=== PATIENT | female | born 1970 | race Caucasian/White ===

== ENCOUNTER → 2016-09-23 | Outpatient (CLI) | payer BC ==
--- NOTE | 2016-09-24 07:57 | XR ---
EXAMINATION TYPE: XR KUB DATE OF EXAM ORDERED: 09/23/2016 4:34 PM HISTORY: Right-sided kidney stone and flank pain. COMPARISON: None. FINDINGS: There are phleboliths within the pelvis. No definite renal calculi are seen. The abdominal gas pattern is normal. IMPRESSION: I DO NOT SEE EVIDENCE OF NEPHROLITHIASIS AT THIS TIME.
== END | disposition home or self-care (01) ==
LOC: RADXRMAIN 16:03
PROVIDERS: ATTEND Physician Assistant
DX: N20.0 Calculus of kidney (principal)
CPT/HCPCS: 74000

== ENCOUNTER → 2016-10-31 | Outpatient (CLI) | payer BC ==
[2016-10-31 19:03] LABS: Calcium 8.4 mg/dL (8.4-10.2); Potassium 4.1 mmol/L (3.5-5.1); Total Bilirubin 0.5 mg/dL (0.2-1.3); Total Protein 6.8 g/dL (6.3-8.2)
[2016-10-31 19:11] LABS: Basophils % (A) 0 %; Eosinophils # (A) 0.2 k/uL (0-0.7); Eosinophils % (A) 3 %; HCT 38.9 % (34.0-46.0); HDW 2.45; Hypochromasia Slight; Luc % (Auto) 3; Lymphocytes # (A) 1.3 k/uL (1.0-4.8); Lymphocytes % (A) 19 %; MCH 29.8 pg (25.0-35.0); MCHC 30.8 g/dL (31.0-37.0); MCV 96.8 fL (80.0-100.0); Mean Platelet Volume 7.6; Monocytes # (A) 0.4 k/uL (0-1.0); Monocytes % (A) 6 %; Neutrophils # (A) 4.7 k/uL (1.3-7.7); Neutrophils % (A) 69 %; RBC 4.02 m/uL (3.80-5.40); RDW 11.9 % (11.5-15.5); WBC 6.8 k/uL (3.8-10.6); WBC (Perox) 6.82
== END | disposition home or self-care (01) ==
LOC: MMGSC 14:41
PROVIDERS: ATTEND Family Medicine
DX: E11.9 Type 2 diabetes mellitus without complications (principal)
CPT/HCPCS: 36415; 80053; 83036; 85025

== ENCOUNTER → 2016-11-05 | Outpatient (CLI) | payer BC ==
--- NOTE | 2016-11-05 19:35 | CT ---
EXAMINATION TYPE: CT abdomen pelvis wo con DATE OF EXAM: 11/05/2016 7:17 PM COMPARISON: NONE HISTORY: Right flank pain, history of stones with lithotripsy. CT DLP: 2702.70 mGycm Automated exposure control for dose reduction was used. TECHNIQUE: Helical acquisition of images was performed from the lung bases through the pelvis. FINDINGS: The lung bases are clear of consolidation. There is no pleural effusion. Heart size is normal. Liver spleen pancreas gallbladder appear normal. Bile ducts are not dilated. There is no adrenal mass . The right kidney shows hydronephrosis and perinephric edema. There is a 5 mm calculus at the right ureteropelvic junction. The left kidney has normal size and contour with no hydronephrosis. There is no retroperitoneal adenopathy. There is an umbilical hernia that contains omental fat. Bladder distends smoothly. There is no evidence of a pelvic mass. There are multiple small right magnus l calculi. The appendix appears normal. I see no bony destructive process. IMPRESSION: RIGHT-SIDED HYDRONEPHROSIS WITH AN OBSTRUCTING SMALL CALCULUS AT THE URETEROPELVIC JUNCTION. PERINEPH KODY EDEMA. MULTIPLE RIGHT RENAL CALCULI.
== END | disposition home or self-care (01) ==
LOC: RADCTMAIN 18:54
PROVIDERS: ATTEND Urology
DX: N13.2 Hydronephrosis with renal and ureteral calculous obstruction (principal); N04.9 Nephrotic syndrome with unspecified morphologic changes
CPT/HCPCS: 74176

== ENCOUNTER 2016-12-24 13:59 | Day surgery (SDC) | payer BC ==
[2016-12-24] MEDS ORDERED: LIDOCAINE 1% 20 ML VIAL (10MG/ML) FOR IV START INTRADERMA ONE (14:32)
[2016-12-24] MEDS ORDERED: LACTATED RINGERS 1,000 ML IV ONE ×2 (14:34→16:34)
[2016-12-24] MEDS ORDERED: DEXAMETHASONE SOD PHOSPHATE 10 MG/ML 1 ML VIAL IV ONE (14:35)
[2016-12-24] MEDS ORDERED: ONDANSETRON 4 MG/2 ML VIAL IVP ONE (14:35)
[2016-12-24 14:42] LABS: Glucose,Whole Blood 162 mg/dL (75-99)
[2016-12-24] MEDS ORDERED: fentaNYL (PF) 50 MCG/ML 2 ML AMP ONE (15:09)
[2016-12-24] MEDS ORDERED: PROPOFOL 10 MG/ML 20 ML VIAL IV ONE (15:09)
[2016-12-24] MEDS ORDERED: LIDOCAINE 1% INJ 10MG/ML (20 ML MDV) ONE (15:09)
[2016-12-24] MEDS ORDERED: MIDAZOLAM 2 MG/2 ML VIAL ONE (15:09)
[2016-12-24] MEDS ORDERED: ceFAZolin 3 GM in SODIUM CHLORIDE 0.9% 100 ML IVPB ONE (15:30)
[2016-12-24] MEDS ORDERED: IOHEXOL 350 MG/ML 50ML BOTTLE INTRATHECA ONE (15:49)
--- NOTE | 2016-12-24 16:01 | P.OP ---
Date of Procedure: 12/24/16 Preoperative Diagnosis: Right ureteral obstruction, right ureteral calculus, hydronephrosis, perinephric fluid Postoperative Diagnosis: Same Procedure(s) Performed: Cystoscopy, right retrograde pyelogram, placement of right ureteral catheter with collection of urine for infection, placement of 7 x 28 double-J catheter Anesthesia: MAC Surgeon: Omar Rodriguez Estimated Blood Loss (ml): 0 Pathology: none sent Condition: stable Disposition: PACU Indications for Procedure: The patient is a 46-year-old female with a prolonged complicated kidney stone history. The patient began with the problems couple months ago with a striking right UPJ stone. The original CAT scan showed it to be 12 mm. Her size at 330 pounds prevented her of having shockwave lithotripsy. Her size also is probably going to prevent a percutaneous procedure. I ended up doing her for ureteroscopy and the stone was about 20 mm. I did ureteroscopy and laser lithotripsy with a stent placement. When the stent was removed she obstructed fragments in the proximal ureter. I thus repeated ureteroscopy and laser lithotripsy and placed a stent. The stent was removed last Thursday and by Thursday issues with abdominal pain nausea and vomiting. She was treated by her primary doctor with antibiotics however he presented to the office today with severe abdominal pain. I reviewed the computed tomography scan and identified a 3 mm stone at the UPJ 3 mm stone in the right lower pole calyx perinephric fluid and hydronephrosis. Given the whole scenario my plan is to replace the double-J catheter check for infected urine. Description of Procedure: The patient brought to the operating suite and given a successful general endotracheal anesthesia. She was given a sterile prep and drape after being placed lithotomy position. 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 The bladder is irrigated thoroughly. With an 8 cone-tip catheter a retrograde pyelogram performed and the dye will not go into the UPJ. 25 wire however is able to manipulate by the probable edema from the stone into the renal pelvis. Over the wires and passed a 6-Salvadorean open- ended catheter removed the wire and collect a purulent hydronephrotic drip. I replaced the wire and then over the wires passed a 7 x 28 double-J catheter that coils in the renal pelvis and in the bladder. The patient awake and returned recovery room good condition. The urine is sent for culture. SHe'll be observed in the hospital overnight. The issues to be addressed are the UPJ as well as a perinephric fluid. This will be discussed on a plan of action will be made with the patient.
--- NOTE | 2016-12-24 16:06 | FL ---
EXAMINATION TYPE: FL urography retrograde DATE OF EXAM: 12/24/2016 3:59 PM COMPARISON: NONE HISTORY: 46-year-old female stent placement in right ureter TECHNIQUE: Fluoroscopy. FINDINGS: Fluoroscopic guidance was provided during procedure performed by Dr. Rodriguez. A total of 1 minute 13 seconds of fluoroscopic time was utilized during the procedure and 2 spot images was acquir ed. IMPRESSION: As Above.
[2016-12-24 16:08] LABS: Glucose,Whole Blood 145 mg/dL (75-99)
[2016-12-24] MEDS ORDERED: MORPHINE SULFATE 2 MG/ML SYRINGE IV PRN (16:24)
[2016-12-24] MEDS ORDERED: ACETAMINOPHEN TAB 325 MG TAB PO PRN (16:24)
[2016-12-24] MEDS ORDERED: LEVOFLOXACIN 500 MG TAB PO SCH (16:24)
[2016-12-24] MEDS ORDERED: HYDROcodone/APAP 5-325MG 1 EACH TAB PO PRN (16:24)
[2016-12-24 17:29] LABS: Glucose,Whole Blood 166 mg/dL (75-99)
[2016-12-24] MEDS ORDERED: INSULIN LISPRO (humaLOG) 300 UNIT/3 ML VIAL SQ SCH (17:30)
[2016-12-24] MEDS: SODIUM CHLORIDE 0.45% 1,000 ML IV SCH (17:42)
[2016-12-24] MEDS: glipiZIDE 10 MG TAB PO SCH (21:04)
[2016-12-24] MEDS: metFORMIN 500 MG TAB PO SCH (21:04)
[2016-12-24 23:02] LABS: Glucose,Whole Blood 394 mg/dL (75-99)
[2016-12-24] MEDS: INSULIN LISPRO (humaLOG) 300 UNIT/3 ML VIAL SQ SCH (23:10)
[2016-12-24] MEDS: ceFAZolin 1,000 MG in DEXTROSE/WATER 1 50ML.BAG IVPB SCH (23:10)
[2016-12-25] MEDS ORDERED: ceFAZolin 1 GM in DEXTROSE 5% IN WATER 50 ML IVPB SCH ×2
[2016-12-25] MEDS ORDERED: ceFAZolin 1 GM in SODIUM CHLORIDE 0.9% 100 ML IVPB SCH ×2
[2016-12-25 01:23] VITALS: RESP 16
[2016-12-25 05:05] LABS: Glucose,Whole Blood 323 mg/dL (75-99)
[2016-12-25] MEDS: INSULIN LISPRO (humaLOG) 300 UNIT/3 ML VIAL SQ SCH (05:05)
[2016-12-25] MEDS: SODIUM CHLORIDE 0.45% 1,000 ML IV SCH (05:05)
--- NOTE | 2016-12-25 06:37 | P.DS ---
Providers Attending physician: Omar Rodriguez Primary care physician: [facility] Course: The patient came to the office yesterday with severe right flank pain and nausea. She had a CAT scan couple days prior identified a 3 mm UPJ stone with hydronephrosis and perinephric fluid. Because of the pain and the difficult don 't treatment that she has been undergoing I recommended that she come to the hospital for emergent placement of stent. She underwent cystoscopy retrograde pyelogram which showed an obstructed ureter. Is able to get a wire into the kidney and drain the kidney. The urine was purulent. A double-J catheter was placed and she feels much better this morning. She did not get febrile overnight. She feels much better this morning. I will discharge her home on her home medications plus Keflex. She will follow in the office in one week. My plan is to leave the stent approximately 1 month and then do a cystoscopy ureteroscopy and remove the 3 mm fragment in the UPJ as well as one in the kidney. We'll observe the perinephric fluid and as long as it doesn't get infected nothing further need to be done and will be reabsorbed stone. This is been discussed with the patient. She'll resume her home medications and activity. Patient Condition at Discharge: Good Plan - Discharge Summary New Discharge Prescriptions: Cephalexin [Keflex] 500 mg PO Q8HR #30 cap Discharge Medication List HYDROcodone/APAP 5-325MG [Velpen 5-325] 1 tab PO Q4-6H PRN 12/24/16 [History] amLODIPine BESYLATE/BENAZEPRIL [Lotrel 10-20 mg Capsule] 1 cap PO DAILY [History] glyBURIDE/METFORMIN HCL [Glucovance 5-500 mg Tablet] 2 tab PO BID 12/24/16 [ History] Cephalexin [Keflex] 500 mg PO Q8HR #30 cap 12/25/16 [Rx] Follow up Appointment(s)/Referral(s): Omar Rodriguez MD [STAFF PHYSICIAN] - 1 Week Discharge Disposition: HOME SELF-CARE
[2016-12-25] MEDS: glipiZIDE 10 MG TAB PO SCH (08:37)
[2016-12-25] MEDS: ceFAZolin 1,000 MG in DEXTROSE/WATER 1 50ML.BAG IVPB SCH (08:39)
[2016-12-25] MEDS: metFORMIN 500 MG TAB PO SCH (08:40)
[2016-12-25 08:42] VITALS: BP 118/72; PULSE 99; TEMP 98
[2016-12-25] MEDS ORDERED: amLODIPine 10 MG TAB PO SCH (09:00)
[2016-12-25] MEDS ORDERED: LISINOPRIL 5 MG TAB PO SCH (09:00)
[2016-12-25] MEDS ORDERED: LISINOPRIL 20 MG TAB PO SCH (09:00)
[2016-12-25 12:26] LABS: Hemoglobin A1C 10.1 % (4.2-6.1)
== END 2016-12-25 11:17 | disposition home or self-care (01) ==
LOC: OR 13:59 → 3SUR 16:09 → OR 12-25 11:17
PROVIDERS: ATTEND Urology
DX: N13.2 Hydronephrosis with renal and ureteral calculous obstruction (principal); I10 Essential (primary) hypertension; J45.909 Unspecified asthma, uncomplicated; E11.9 Type 2 diabetes mellitus without complications; Z79.84 Long term (current) use of oral hypoglycemic drugs; Z79.899 Other long term (current) drug therapy; Z88.1 Allergy status to other antibiotic agents; Z88.3 Allergy status to other anti-infective agents; Z88.0 Allergy status to penicillin; Z88.6 Allergy status to analgesic agent
CPT/HCPCS: 83036; 87086; 74420; 52005; C2625; C1758; C1769; J2250; J1100; J0690 ×3; J2405; J2001; J3010; J2704; Q9967; 87075

== ENCOUNTER 2016-12-31 06:13 | Emergency (ER) | payer BC ==
[2016-12-31] MEDS ORDERED: ONDANSETRON 4 MG/2 ML VIAL IVP STA (07:36)
[2016-12-31] MEDS ORDERED: SODIUM CHLORIDE 0.9% 500 ML IV STA (07:36)
[2016-12-31] MEDS ORDERED: HYDROmorphone 1 MG/ML 1 ML SYRINGE IVP STA (07:36)
--- NOTE | 2016-12-31 07:42 | ED ---
General Adult HPI - General Chief complaint: Abdominal Pain Stated complaint: abd pain, shallow breathing Time Seen by Provider: 12/31/16 07:00 Source: patient, RN notes reviewed Mode of arrival: ambulatory Limitations: no limitations - History of Present Illness Initial comments: This is a 46-year-old female who presents emergency Department complaining of right quadrant abdominal pain that radiates to the flank. Patient states she's had multiple kidney procedure should she had a stent placed last Thursday. Patient states this pain started yesterday evening and has persisted all night. Patient states she is nauseous. Patient denies any vomiting. Patient denies any diarrhea. Patient states she still has her gallbladder. Patient states she was told that she had an infected kidney when he put the stent in. Patient states she also was told that there was fluid around the kidney as well. Patient denies any chest pain palpitations. Patient does states she's been coughing more and feels slightly short of breath. Patient denies any recent fever or chills. - Related Data Home Medications Medication Instructions Recorded Confirmed HYDROcodone/APAP 5-325MG [[place] 1 tab PO Q4-6H PRN 12/24/16 12/31/16 5-325] amLODIPine BESYLATE/BENAZEPRIL 1 cap PO DAILY 12/24/16 12/31/16 [Lotrel 10-20 mg Capsule] glyBURIDE/METFORMIN HCL 2 tab PO BID 12/24/16 12/31/16 [Glucovance 5-500 mg Tablet] Cetirizine HCl [Zyrtec] 10 mg PO DAILY 12/31/16 12/31/16 Cyclobenzaprine [Flexeril] 10 mg PO DAILY PRN 12/31/16 12/31/16 Fluconazole [Diflucan] 200 mg PO DAILY 12/31/16 12/31/16 Previous Rx's Medication Instructions Recorded Cephalexin [Keflex] 500 mg PO Q8HR #30 cap 12/25/16 Ketorolac [Toradol] 10 mg PO Q6HR #15 tab 12/31/16 Allergies Allergy/AdvReac Type Severity Reaction Status Date / Time amoxicillin Allergy Severe Itching Verified 12/31/16 08:03 cephalexin [From Keflex] Allergy Severe Itching Verified 12/31/16 08:03 ciprofloxacin [From Cipro] Allergy Severe Itching Verified 12/31/16 08:03 clindamycin Allergy Severe Rash/Hives Verified 12/31/16 08:03 dichloralphenazone Allergy Severe Anaphylaxis Verified 12/31/16 08:03 [From Midrin] doxycycline Allergy Severe Itching Verified 12/31/16 08:03 isometheptene [From Midrin] Allergy Severe Anaphylaxis Verified 12/31/16 08:03 azithromycin Allergy Itching Verified 12/31/16 08:03 sulfamethoxazole Allergy Rash/Hives Verified 12/31/16 08:03 [From Bactrim] trimethoprim [From Bactrim] Allergy Rash/Hives Verified 12/31/16 08:03 antibiotics Allergy Intermediate Rash/Hives Uncoded 12/31/16 06:20 Review of Systems ROS Statement: Those systems with pertinent positive or pertinent negative responses have been documented in the HPI. ROS Other: All systems not noted in ROS Statement are negative. Past Medical History Past Medical History: Asthma, Diabetes Mellitus, GERD/Reflux, Hypertension, Pneumonia Additional Past Medical History / Comment(s): kidney stones , fatty liver, spinal stenosis, "dry skin" "has a spot on lt eye that dr is watching", uti History of Any Multi-Drug Resistant Organisms: MRSA Date of last positivie culture/infection: 06/15/15/02-05-16 MDRO Source:: groin/nose Additional Past Surgical History / Comment(s): 12-24-16 double j cath placed, lithothripy x2, colonoscopy Past Anesthesia/Blood Transfusion Reactions: No Reported Reaction Past Psychological History: No Psychological Hx Reported Additional Psychological History / Comment(s): pt lives with boyfriend in a single story home that has 2 steps t go up. pt is independant. workss for [employer] service. has a nebulizer at home/ Smoking Status: Never smoker Past Alcohol Use History: None Reported Past Drug Use History: None Reported - Past Family History Father Family Medical History: CVA/TIA, Diabetes Mellitus, Myocardial Infarction (MS) Mother Family Medical History: Cancer, Diabetes Mellitus Additional Family Medical History / Comment(s): small cell lung cancer General Exam - General Exam Comments Initial Comments: GENERAL: Patient is well-developed and well-nourished. Patient is nontoxic and well- hydrated and is in mild distress. ENT: Neck is soft and supple. No significant lymphadenopathy is noted. Oropharynx is clear. Moist mucous membranes. Neck has full range of motion without eliciting any pain. EYES: The sclera were anicteric and conjunctiva were pink and moist. Extraocular movements were intact and pupils were equal round and reactive to light. Eyelids were unremarkable. PULMONARY: Unlabored respirations. Good breath sounds bilaterally. No audible rales rhonchi or wheezing was noted. CARDIOVASCULAR: There is a regular rate and rhythm without any murmurs gallops or rubs. ABDOMEN: Patient has right upper quadrant tenderness no rebound or guarding. SKIN: Skin is clear with no lesions or rashes and otherwise unremarkable. NEUROLOGIC: Patient is alert and oriented x3. Cranial nerves II through XII are grossly intact. Motor and sensory are also intact. Normal speech, volume and content. Symmetrical smile. MUSCULOSKELETAL: Normal extremities with adequate strength and full range of motion. No lower extremity swelling or edema. No calf tenderness. LYMPHATICS: No significant lymphadenopathy is noted PSYCHIATRIC: Normal psychiatric evaluation. Normal interpersonal interactions appears functionally intact in deals appropriately with others. No signs of depression. No signs of anxiety. Limitations: no limitations Course Vital Signs 12/31/16 12/31/16 06:18 08:46 Temperature 98.3 F 98.6 F Pulse Rate 116 H 84 Respiratory 20 22 Rate Blood Pressure 142/79 133/70 O2 Sat by Pulse 98 Oximetry Medical Decision Making - Medical Decision Making Patient stated she was recently on Keflex and she did with Benadryl and she was fine taking at home. Ultrasound showed some fluid around the right kidney. I spoke with Dr. Bullard about the results he did not believe the patient needed antibiotics at this point and that the patient could follow-up with their office. Patient was feeling considerably better she only complaint is 2 out of 10 pain. - Lab Data Result diagrams: 12/31/16 06:33 12/31/16 06:33 Lab Results 12/31/16 12/31/16 12/31/16 Range/Units 06:23 06:33 06:33 WBC 10.6 (3.8-10.6) k/uL RBC 3.79 L (3.80-5.40) m/uL Hgb 10.9 L (11.4-16.0) gm/dL Hct 35.2 (34.0-46.0) % MCV 92.6 (80.0-100.0) fL MCH 28.6 (25.0-35.0) pg MCHC 30.9 L (31.0-37.0) g/dL RDW 13.7 (11.5-15.5) % Plt Count 448 (150-450) k/uL Neutrophils % 76 % Lymphocytes % 15 % Monocytes % 4 % Eosinophils % 3 % Basophils % 1 % Neutrophils # 8.1 H (1.3-7.7) k/uL Lymphocytes # 1.6 (1.0-4.8) k/uL Monocytes # 0.4 (0-1.0) k/uL Eosinophils # 0.3 (0-0.7) k/uL Basophils # 0.1 (0-0.2) k/uL Hypochromasia Moderate Sodium 138 (137-145) mmol/L Potassium 4.9 (3.5-5.1) mmol/L Chloride 98 (98-107) mmol/L Carbon Dioxide 30 (22-30) mmol/L Anion Gap 10 mmol/L BUN 16 (7-17) mg/dL Creatinine 1.02 (0.52-1.04) mg/dL Est GFR (MDRD) Af Amer >60 (>60 ml/min/1.73 sqM) Est GFR (MDRD) Non-Af 59 (>60 ml/min/1.73 sqM) Glucose 213 H (74-99) mg/dL Calcium 8.1 L (8.4-10.2) mg/dL Total Bilirubin 0.7 (0.2-1.3) mg/dL AST 16 (14-36) U/L ALT 21 (9-52) U/L Alkaline Phosphatase 67 (38-126) U/L Total Protein 7.0 (6.3-8.2) g/dL Albumin 3.3 L (3.5-5.0) g/dL Amylase 39 (30-110) U/L Lipase 274 (23-300) U/L Urine Color Yellow Urine Appearance Cloudy H (Clear) Urine pH 6.0 (5.0-8.0) Ur Specific [place] 1.013 (1.001-1.035) Urine Protein 1+ H (Negative) Urine Glucose (UA) Negative (Negative) Urine Ketones Negative (Negative) Urine Blood Trace H (Negative) Urine Nitrite Negative (Negative) Urine Bilirubin Negative (Negative) Urine Urobilinogen <2.0 (<2.0) mg/dL Ur Leukocyte Esterase Large H (Negative) Urine RBC 8 H (0-5) /hpf Urine WBC >182 H (0-5) /hpf Ur Squamous Epith Cells 5 H (0-4) /hpf Urine Mucus Rare H (None) /hpf Urine Yeast (Budding) Rare H (None) /hpf Disposition Clinical Impression: Right flank pain Disposition: HOME SELF-CARE Condition: Good Instructions: Flank Pain (ED) Prescriptions: Ketorolac [Toradol] 10 mg PO Q6HR #15 tab Referrals: Radames Mcgill DO [Primary Care Provider] - 1-2 days Omar Rodriguez MD [STAFF PHYSICIAN] - 1-2 days Time of Disposition: 10:57
[2016-12-31 08:00] LABS: Basophils # (A) 0.1 k/uL (0-0.2); Basophils % (A) 1 %; CH 28.3; CHCM 30.6; Eosinophils # (A) 0.3 k/uL (0-0.7); Eosinophils % (A) 3 %; HCT 35.2 % (34.0-46.0); HDW 2.58; HGB 10.9 gm/dL (11.4-16.0); Hypochromasia Moderate; Luc # (Auto) 0.16; Luc % (Auto) 2; Lymphocytes # (A) 1.6 k/uL (1.0-4.8); Lymphocytes % (A) 15 %; MCH 28.6 pg (25.0-35.0); MCHC 30.9 g/dL (31.0-37.0); MCV 92.6 fL (80.0-100.0); Mean Platelet Volume 6.7; Monocytes # (A) 0.4 k/uL (0-1.0); Monocytes % (A) 4 %; Neutrophils # (A) 8.1 k/uL (1.3-7.7); Neutrophils % (A) 76 %; RBC 3.79 m/uL (3.80-5.40); RDW 13.7 % (11.5-15.5); WBC 10.6 k/uL (3.8-10.6)
[2016-12-31 08:00] LABS: Appearance,Urine Cloudy (Clear); Bilirubin,Urine Negative (Negative); Glucose,Urine (UA) Negative (Negative); Ketones,Urine Negative (Negative); Leukocyte Esterase,Urine Large (Negative); Mucus,Urine Rare /hpf; Nitrite,Urine Negative (Negative); Particle Count 7155; Protein,Urine 1+ (Negative); RBC,Urine 8 /hpf (0-5); Specific Gravity,Urine 1.013 (1.001-1.035); Squamous Epithelial Cell,Urine 5 /hpf (0-4); UA Billing (MACRO vs. MICRO) MICRO; Urobilinogen,Urine <2.0 mg/dL (<2.0); WBC,Urine >182 /hpf (0-5)
[2016-12-31 08:02] LABS: ALT 21 U/L (9-52); AST 16 U/L (14-36); Alkaline Phosphatase 67 U/L (38-126); Amylase 39 U/L (30-110); Anion Gap 10 mmol/L; Blood Urea Nitrogen 16 mg/dL (7-17); Calcium 8.1 mg/dL (8.4-10.2); Carbon Dioxide 30 mmol/L (22-30); Chloride 98 mmol/L (98-107); Glucose 213 mg/dL (74-99); Non-African American GFR(MDRD) 59 (>60 ml/min/1.73 sqM); Potassium 4.9 mmol/L (3.5-5.1); Sodium 138 mmol/L (137-145); Total Bilirubin 0.7 mg/dL (0.2-1.3)
--- NOTE | 2016-12-31 10:27 | US ---
EXAMINATION TYPE: US abd limited kidneys/bladder DATE OF EXAM: 12/31/2016 7:41 AM COMPARISON: NONE CLINICAL HISTORY: 46-year-old female Pain. History of kidney stones, stent right ureter 12/24/16, lit hotripsy 11/24/16, RUQ pain TECHNIQUE: Multiple sonographic images of the right upper quadrant, kidneys and bladder were obtained . FINDINGS: FINISH CLEANER NOTES: Extreme technical limitations due to patient's body habitus and large amount of ov erlying bowel content. Liver Length: 18.7 cm Gallbladder Wall: 0.2 cm CBD: 0.4 cm Right Kidney: 11.5 x 7.2 x 7.5 cm Left Kidney: 11.5 x 6.2 x 5.2 cm Pancreas: Obscured by bowel gas Liver: limited evaluation, enlarged and attenuating. Gallbladder: No abnormal gallbladder wall thickening, pericholecystic fluid, or shadowing calculi. T he gallbladder is mildly hydropic measuring up to 5 cm wide. CBD: Normal caliber. Right Kidney: There appears to be a hypoechoic area = 8.8 x 4.5 x 6.9cm along the lateral cortex. N onobstructive 8 mm calculus at the lower pole. No evidence of hydronephrosis. Echogenic foci lower po le = 0.8cm Left Kidney: No hydronephrosis Bladder: stent visualized within. On the left ureteral jet is seen during the course of the exam. Bilateral Jets Seen no IMPRESSION: 1. An 8.8 x 6.9 cm ovoid hypoechoic area seen along the lateral aspect of the right kidney. Given the patient's history of recent urologic intervention, the possibility of a subcapsular hematoma is not excluded at this time. CT without and with contrast to further evaluate. 2. No hydronephrosis. 3. Gallbladder hydrops probably due to fasting state as there is no evidence for cholelithiasis or an cillary imaging findings of acute cholecystitis. 4. Attenuating and enlarged liver. Correlate for nonspecific cellular disease.
[2016-12-31] MEDS ORDERED: ONDANSETRON 4 MG ODT STARTER PACK 2 TAB BTL PO STA (11:00)
[2016-12-31 11:10] VITALS: BP 140/65; PULSE 103; RESP 20; TEMP 98.4
== END 2016-12-31 11:20 | disposition home or self-care (01) ==
LOC: EC 06:13
DX: R10.9 Unspecified abdominal pain (principal); R11.0 Nausea; E11.9 Type 2 diabetes mellitus without complications; I10 Essential (primary) hypertension; Z87.442 Personal history of urinary calculi; Z88.0 Allergy status to penicillin; Z88.1 Allergy status to other antibiotic agents; Z88.2 Allergy status to sulfonamides; Z88.8 Allergy status to other drugs, medicaments and biological substances; Z79.84 Long term (current) use of oral hypoglycemic drugs; Z79.899 Other long term (current) drug therapy
CPT/HCPCS: 99284; 96374; 96375; 96361 ×2; 36415; 80053; 82150; 83690; 85025; 81001; 76705; 76770; J2405; J1170; S0119

== ENCOUNTER → 2017-01-07 | Outpatient (CLI) | payer BC ==
--- NOTE | 2017-01-07 14:55 | NM ---
EXAMINATION TYPE: NM hepatobiliary w EF DATE OF EXAM: 01/07/2017 2:41 PM COMPARISON: NONE HISTORY: R10.11 ruq pain TECHNIQUE: After the intravenous administration of 5.5 mCi Tc 99m Mebrofenin hepatobiliary scintigrap hy is performed. A down seizures administered. Immediate images post injection. FINDINGS: There is satisfactory initial accumulation of tracer by the liver. The gallbladder is visualized wit hin 26 minutes. The small bowel activity is noted within 10 minutes. At one hour 8 ounces of oral e nsure plus is given to mimic CCK and gallbladder ejection fraction is calculated at 86 percent. IMPRESSION: 1. No evidence for acute cholecystitis. 2. Elevated gallbladder ejection fraction which may reflect hypercontractile state.
== END ==
LOC: RADNMMAIN 12:26
PROVIDERS: ATTEND Family Medicine
DX: R10.11 Right upper quadrant pain (principal)
CPT/HCPCS: 78226; A9537

== ENCOUNTER → 2017-05-19 | Outpatient (CLI) | payer BC ==
--- NOTE | 2017-05-19 11:08 | XR ---
EXAMINATION TYPE: XR KUB DATE OF EXAM: 05/19/2017 COMPARISON: 09/23/2016 HISTORY: Right-sided pain TECHNIQUE: One view abdominal series FINDINGS: The osseous structures are intact. The bowel gas pattern is nonspecific. Arthropathy of the hips not ed. Calcifications in the pelvis are nonspecific. Changes of sacroiliitis suggested. No definite suspicious calcifications overlying the kidneys. IMPRESSION: 1. Sub-5 mm calcifications within the right hemipelvis are again noted appears stable in number. One potentially could represent a distal ureteral calculus. Calcifications in the left hemipelvis appear vascular.
== END | disposition home or self-care (01) ==
LOC: RADXRMAIN 10:34
PROVIDERS: ATTEND Urology
DX: N20.0 Calculus of kidney (principal)
CPT/HCPCS: 74000

== ENCOUNTER → 2017-10-05 | Outpatient (CLI) | payer BC ==
--- NOTE | 2017-10-05 09:49 | CT ---
EXAMINATION TYPE: CT abdomen pelvis wo con DATE OF EXAM: 10/05/2017 COMPARISON: November 05, 2016 HISTORY: Calculus of kidney CT DLP: 2481.3 mGycm Examination of the solid and hollow viscera is limited given the lack of contrast. FINDINGS: LUNG BASES: No evidence for nodule. No evidence for infiltrate. LIVER/GB: The gallbladder is unremarkable. No space-occupying hepatic lesion. PANCREAS: No pancreatic mass identified. No inflammatory process seen. SPLEEN: No evidence for splenomegaly. No intrasplenic lesions seen. ADRENALS: No adrenal nodules identified. No evidence for thickening. KIDNEYS: Previously noted right renal pelvic calcifications are not visualized. No new calculi are se en at this time. 2 tiny less than 2 mm calculi lower pole right kidney. Mild right-sided renal atroph ic change. Hypoattenuating lesion mid pole right kidney measures approximately 1.5 cm and may reflect a cyst. Left kidney is unremarkable. No hydronephrosis. BOWEL: Appendix has a normal appearance. No evidence of bowel obstruction. No inflammatory process. Lymph nodes: No evidence for adenopathy greater than 1 cm. Abdominal aorta: Atheromatous changes seen. No evidence for aneurysm. Genital organs: Small right ovarian cyst measuring 2.3 cm. Left ovary and uterus are unremarkable. Other: Fat-containing umbilical hernia. IMPRESSION: 1. 2 tiny nonobstructing calculi identified lower pole right kidney. No obstructing calculi are seen at this time. Mild right-sided renal atrophic change. 2. Hypoattenuating lesion right kidney may reflect a cyst. This can be confirmed with ultrasound. 3. Probable right ovarian functional ovarian cyst. 4. Fat-containing umbilical
== END ==
LOC: RADCTMAIN 09:04
PROVIDERS: ATTEND Urology
DX: N20.0 Calculus of kidney (principal); N28.9 Disorder of kidney and ureter, unspecified; K42.9 Umbilical hernia without obstruction or gangrene
CPT/HCPCS: 74176

== ENCOUNTER → 2018-07-08 | Outpatient (CLI) | payer BC ==
--- NOTE | 2018-07-09 08:19 | CT ---
EXAMINATION TYPE: CT abdomen pelvis wo con DATE OF EXAM: 07/08/2018 COMPARISON: 10/05/2017 HISTORY: Right side flank pain. CT DLP: 1287 mGycm Examination of the solid and hollow viscera is limited given the lack of contrast. FINDINGS: LUNG BASES: No evidence for nodule. No evidence for infiltrate. LIVER/GB: The gallbladder is unremarkable. No space-occupying hepatic lesion. PANCREAS: No pancreatic mass identified. No inflammatory process seen. SPLEEN: No evidence for splenomegaly. No intrasplenic lesions seen. ADRENALS: No adrenal nodules identified. No evidence for thickening. KIDNEYS: No evidence for renal mass. No hydronephrosis present. 1.2 cm hypoattenuating lesion upper p ole right kidney may reflect a small cyst. 2 right-sided 3 mm calculi are seen which are nonobstructi ng. No left-sided nephrolithiasis appreciated. BOWEL: Appendix has a normal appearance. No evidence of bowel obstruction. No inflammatory process. Lymph nodes: No evidence for adenopathy greater than 1 cm. Abdominal aorta: Atheromatous changes seen. No evidence for aneurysm. Genital organs: No significant abnormality. Other: Fat-containing umbilical hernia noted.. IMPRESSION: 1. Nonobstructing right-sided nephrolithiasis. 2. Fat-containing umbilical hernia.
== END | disposition home or self-care (01) ==
LOC: RADCTMAIN 16:49
PROVIDERS: ATTEND Urology
DX: N20.0 Calculus of kidney (principal); K42.9 Umbilical hernia without obstruction or gangrene
CPT/HCPCS: 74176

== ENCOUNTER 2019-02-03 20:43 | Emergency (ER) | payer BC ==
[2019-02-03] MEDS ORDERED: SODIUM CHLORIDE 0.9% 1,000 ML IV STA (21:53)
[2019-02-03 22:56] LABS: Basophils % (A) 0 %; Eosinophils # (A) 0.3 k/uL (0-0.7); Eosinophils % (A) 3 %; HGB 13.2 gm/dL (11.4-16.0); Lymphocytes % (A) 22 %; MCH 29.9 pg (25.0-35.0); MCHC 32.2 g/dL (31.0-37.0); Mean Platelet Volume 7.4; Monocytes # (A) 0.4 k/uL (0-1.0); Monocytes % (A) 4 %; Neutrophils # (A) 6.5 k/uL (1.3-7.7); Neutrophils % (A) 70 %; Platelet Count 284 k/uL (150-450); RBC 4.41 m/uL (3.80-5.40); RDW 13.9 % (11.5-15.5); WBC 9.4 k/uL (3.8-10.6)
[2019-02-03 23:01] VITALS: TEMP 97.9
[2019-02-03 23:07] LABS: Albumin 4.3 g/dL (3.5-5.0); Calcium 10.2 mg/dL (8.4-10.2); Total Bilirubin 0.5 mg/dL (0.2-1.3); Total Protein 7.4 g/dL (6.3-8.2)
[2019-02-03 23:32] LABS: Appearance,Urine Clear (Clear); Bilirubin,Urine Negative (Negative); Blood,Urine Negative (Negative); Color,Urine Yellow; Glucose,Urine (UA) Negative (Negative); Ketones,Urine Negative (Negative); Leukocyte Esterase,Urine Negative (Negative); Nitrite,Urine Negative (Negative); Protein,Urine Negative (Negative); Urobilinogen,Urine <2.0 mg/dL (<2.0)
--- NOTE | 2019-02-04 00:24 | ED ---
General Adult HPI - General Chief complaint: Skin/Abscess/Foreign Body Stated complaint: cellulitis Time Seen by Provider: 02/03/19 21:37 Source: patient, RN notes reviewed, old records reviewed Mode of arrival: ambulatory Limitations: no limitations - History of Present Illness Initial comments: 48-year-old female patient past history of type 2 diabetes, asthma presents to ED with cellulitis on her abdomen. Patient reports that for approximately 2 days she has had redness on her left lower quadrant abdominal region. Patient denies any constitutional symptoms. Denies any nausea vomiting diarrhea, fevers or chills. Patient states that she is not . Patient has a chest pain shortness of breath abdominal pain. Patient denies any other complaints at this time. Systemic: Pt denies fatigue, myalgia, fever/chills, rash. Pt denies weakness, night sweats, weight loss. Neuro: Pt denies headache, visual disturbances, syncope or pre-syncope. HEENT: Pt denies ocular discharge or irritation, otalgia, rhinorrhea, pharyngitis or notable lymphadenopathy. Cardiopulmonary: Pt denies chest pain, SOB, heart palpitations, dyspnea on exertion. Abdominal/GI: Pt denies abdominal pain, n/v/d. : Pt denies dysuria, burning w/ urination, frequency/urgency. Denies new onset urinary or bowel incontinence. MSK: Pt denies myalgia, loss of strength or function in extremities. Neuro: Pt denies new onset weakness, paresthesias. - Related Data Home Medications Medication Instructions Recorded Confirmed amLODIPine BESYLATE/BENAZEPRIL 1 cap PO DAILY 12/24/16 02/03/19 [Lotrel 10-20 mg Capsule] glyBURIDE/METFORMIN HCL 2 tab PO BID 12/24/16 02/03/19 [Glucovance 5-500 mg Tablet] Cetirizine HCl [Zyrtec] 10 mg PO DAILY 12/31/16 02/03/19 Cyclobenzaprine [Flexeril] 10 mg PO DAILY PRN 12/31/16 02/03/19 Albuterol Sulfate [Proair Hfa] 2 puff INHALATION RT-BID 02/03/19 02/03/19 Ibuprofen [Motrin Ib] 800 mg PO Q8H 02/03/19 02/03/19 sitaGLIPtin [Januvia] 100 mg PO DAILY 02/03/19 02/03/19 Previous Rx's Medication Instructions Recorded Cephalexin [Keflex] 500 mg PO Q6HR 10 Days #40 cap 02/04/19 Allergies Allergy/AdvReac Type Severity Reaction Status Date / Time amoxicillin Allergy Severe Itching Verified 02/03/19 20:51 cephalexin [From Keflex] Allergy Severe Itching Verified 02/03/19 20:51 ciprofloxacin [From Cipro] Allergy Severe Itching Verified 02/03/19 20:51 clindamycin Allergy Severe Rash/Hives Verified 02/03/19 20:51 dichloralphenazone Allergy Severe Anaphylaxis Verified 02/03/19 20:51 [From Midrin] doxycycline Allergy Severe Itching Verified 02/03/19 20:51 isometheptene [From Midrin] Allergy Severe Anaphylaxis Verified 02/03/19 20:51 azithromycin Allergy Itching Verified 02/03/19 20:51 onion Allergy Nausea & Verified 02/03/19 22:14 Vomiting sulfamethoxazole Allergy Rash/Hives Verified 02/03/19 20:51 [From Bactrim] tomato Allergy Nausea & Verified 02/03/19 22:14 Vomiting trimethoprim [From Bactrim] Allergy Rash/Hives Verified 02/03/19 20:51 antibiotics Allergy Intermediate Rash/Hives Uncoded 02/03/19 20:51 Review of Systems ROS Statement: Those systems with pertinent positive or pertinent negative responses have been documented in the HPI. ROS Other: All systems not noted in ROS Statement are negative. Past Medical History Past Medical History: Asthma, Diabetes Mellitus, GERD/Reflux, Hypertension, Pneumonia Additional Past Medical History / Comment(s): kidney stones , fatty liver,spinal stenosis, "dry skin" "has a spot on lt eye that dr is watching", uti History of Any Multi-Drug Resistant Organisms: MRSA Date of last positivie culture/infection: 06/15/1502-05-16 MDRO Source:: groin/nose Additional Past Surgical History / Comment(s): 12-24-16 double j cath placed, lithothripy x2, colonoscopy Past Anesthesia/Blood Transfusion Reactions: No Reported Reaction Past Psychological History: No Psychological Hx Reported Smoking Status: Never smoker Past Alcohol Use History: None Reported Past Drug Use History: None Reported - Past Family History Father Family Medical History: CVA/TIA, Diabetes Mellitus, Myocardial Infarction (OR) Mother Family Medical History: Cancer, Diabetes Mellitus Additional Family Medical History / Comment(s): small cell lung cancer General Exam - General Exam Comments Initial Comments: Constitutional: NAD, AOX3, Pt has pleasant affect. HEENT: NC/AT, trachea midline, neck supple, no lymphadenopathy. Posterior pharynx non erythematous, without exudates. External ears appear normal, without discharge. Mucous membranes moist. Eyes PERRLA, EOM intact. There is no scleral icterus. No pallor noted. Cardiopulmonary: RRR, no murmurs, rubs or gallops, no JVD noted. Lungs CTAB in anterior and posterior corbin. No peripheral edema. Abdominal exam: Abdomen soft and non-distended. Abdomen non-tender to palpation in all 4 quadrants. Mild erythema noted in the LLQ, no area of fluctuance or abscess. Bowel sounds active in LLQ. No hepatosplenomegaly. No ecchymosis Neuro: CN II-XII grossly intact. No nuchal rigidity. MSK: No posterior calf tenderness bilaterally, homans sign negative bilaterally. Posterior tibialis and radial pulse +2 bilaterally. Sensation intact in upper and lower extremities. Full active ROM in upper and lower extremities, 5/5 stregnth. Limitations: no limitations Course Vital Signs 02/03/19 02/03/19 02/04/19 20:47 22:58 00:40 Temperature 98.3 F 97.9 F 97.9 F Pulse Rate 104 H 76 79 Respiratory 20 18 18 Rate Blood Pressure 166/86 170/78 144/77 O2 Sat by Pulse 98 98 97 Oximetry Medical Decision Making - Medical Decision Making 48-year-old female patient past history of type 2 diabetes presents to ED with cellulitis for 2 days and left lower quadrant region. Patient does have some erythema in this region. No drainable abscess noted. Laboratory investigations were noncompressive. Patient also stable, afebrile. CT abdomen pelvis did not display any abscess. Patient does have lengthy ALLERGY list, was administered ceftriaxone without difficulty. Patient discharged Keflex. Patient prior reported ALLERGY to Keflex was only itching. Patient never had anaphylaxis before. Patient follow up with primary care provider in one to 2 days. Patient will return to ER if condition worsens in any way. Case discussed and pt seen by Dr. Goldstein. - Lab Data Result diagrams: 02/03/19 22:20 02/03/19 22:20 Lab Results 02/03/19 02/03/19 02/03/19 Range/Units 22:20 22:20 22:20 WBC 9.4 (3.8-10.6) k/uL RBC 4.41 (3.80-5.40) m/uL Hgb 13.2 (11.4-16.0) gm/dL Hct 41.0 (34.0-46.0) % MCV 93.0 (80.0-100.0) fL MCH 29.9 (25.0-35.0) pg MCHC 32.2 (31.0-37.0) g/dL RDW 13.9 (11.5-15.5) % Plt Count 284 (150-450) k/uL Neutrophils % 70 % Lymphocytes % 22 % Monocytes % 4 % Eosinophils % 3 % Basophils % 0 % Neutrophils # 6.5 (1.3-7.7) k/uL Lymphocytes # 2.0 (1.0-4.8) k/uL Monocytes # 0.4 (0-1.0) k/uL Eosinophils # 0.3 (0-0.7) k/uL Basophils # 0.0 (0-0.2) k/uL Sodium 141 (137-145) mmol/L Potassium 4.0 (3.5-5.1) mmol/L Chloride 105 (98-107) mmol/L Carbon Dioxide 24 (22-30) mmol/L Anion Gap 12 mmol/L BUN 19 H (7-17) mg/dL Creatinine 1.23 H (0.52-1.04) mg/dL Est GFR (CKD-EPI)AfAm 61 (>60 ml/min/1.73 sqM) Est GFR (CKD-EPI)NonAf 53 (>60 ml/min/1.73 sqM) Glucose 86 (74-99) mg/dL Plasma Lactic Acid Hamilton 1.0 (0.7-2.0) mmol/L Calcium 10.2 (8.4-10.2) mg/dL Total Bilirubin 0.5 (0.2-1.3) mg/dL AST 28 (14-36) U/L ALT 31 (9-52) U/L Alkaline Phosphatase 73 (38-126) U/L Total Protein 7.4 (6.3-8.2) g/dL Albumin 4.3 (3.5-5.0) g/dL Urine Color Urine Appearance (Clear) Urine pH (5.0-8.0) Ur Specific [place] (1.001-1.035) Urine Protein (Negative) Urine Glucose (UA) (Negative) Urine Ketones (Negative) Urine Blood (Negative) Urine Nitrite (Negative) Urine Bilirubin (Negative) Urine Urobilinogen (<2.0) mg/dL Ur Leukocyte Esterase (Negative) Urine HCG, Qual (Not Detectd) 02/03/19 02/03/19 Range/Units 22:20 22:20 WBC (3.8-10.6) k/uL RBC (3.80-5.40) m/uL Hgb (11.4-16.0) gm/dL Hct (34.0-46.0) % MCV (80.0-100.0) fL MCH (25.0-35.0) pg MCHC (31.0-37.0) g/dL RDW (11.5-15.5) % Plt Count (150-450) k/uL Neutrophils % % Lymphocytes % % Monocytes % % Eosinophils % % Basophils % % Neutrophils # (1.3-7.7) k/uL Lymphocytes # (1.0-4.8) k/uL Monocytes # (0-1.0) k/uL Eosinophils # (0-0.7) k/uL Basophils # (0-0.2) k/uL Sodium (137-145) mmol/L Potassium (3.5-5.1) mmol/L Chloride (98-107) mmol/L Carbon Dioxide (22-30) mmol/L Anion Gap mmol/L BUN (7-17) mg/dL Creatinine (0.52-1.04) mg/dL Est GFR (CKD-EPI)AfAm (>60 ml/min/1.73 sqM) Est GFR (CKD-EPI)NonAf (>60 ml/min/1.73 sqM) Glucose (74-99) mg/dL Plasma Lactic Acid Hamilton (0.7-2.0) mmol/L Calcium (8.4-10.2) mg/dL Total Bilirubin (0.2-1.3) mg/dL AST (14-36) U/L ALT (9-52) U/L Alkaline Phosphatase (38-126) U/L Total Protein (6.3-8.2) g/dL Albumin (3.5-5.0) g/dL Urine Color Yellow Urine Appearance Clear (Clear) Urine pH 5.0 (5.0-8.0) Ur Specific [place] 1.020 (1.001-1.035) Urine Protein Negative (Negative) Urine Glucose (UA) Negative (Negative) Urine Ketones Negative (Negative) Urine Blood Negative (Negative) Urine Nitrite Negative (Negative) Urine Bilirubin Negative (Negative) Urine Urobilinogen <2.0 (<2.0) mg/dL Ur Leukocyte Esterase Negative (Negative) Urine HCG, Qual Not Detected (Not Detectd) Disposition Clinical Impression: Cellulitis Disposition: HOME SELF-CARE Condition: Stable Instructions (If sedation given, give patient instructions): Cellulitis (ED) Additional Instructions: Patient to adhere to previously discussed treatment plan and will take medication(s) as directed. Patient to follow up with PCP in 1-2 days. Patient to return to ED if symptoms do not improve. Please take medication as directed. Follow up with primary care provider in 1-2 days. Return to ED if condition worsens. Prescriptions: Cephalexin [Keflex] 500 mg PO Q6HR 10 Days #40 cap Is patient prescribed a controlled substance at d/c from ED?: No Referrals: Radames Mcgill DO [Primary Care Provider] - 1-2 days
--- NOTE | 2019-02-04 00:46 | CT ---
EXAM: CT Abdomen and Pelvis With Intravenous Contrast CLINICAL HISTORY: ITS.REASON CT Reason: Pain TECHNIQUE: Axial computed tomography images of the abdomen and pelvis with intravenous contrast. CTDI is 31.3, 31.4 mGy and DLP is 2031, 1177 mGy- cm. This CT exam was performed using one or more of the following dose reduction techniques: automated exposure control, adjustment of the mA and/or kV according to patient size, and/or use of iterative reconstruction technique. Delayed imaging was performed. COMPARISON: CT abdomen and pelvis 07/08/2018. FINDINGS: Lung bases: Unremarkable. No mass. No consolidation. ABDOMEN: Liver: Hepatic steatosis. Gallbladder and bile ducts: Unremarkable. No calcified stones. No ductal dilation. Pancreas: Unremarkable. No mass. No ductal dilation. Spleen: Unremarkable. No splenomegaly. Adrenals: Unremarkable. No mass. Kidneys and ureters: Nonobstructing right renal calculus. Unchanged right renal cyst. Stomach and bowel: There is mild wall thickening with fat attenuation of the ascending and transverse colon. No obstruction. PELVIS: Appendix: No findings to suggest acute appendicitis. Bladder: Unremarkable. No mass. Reproductive: Unremarkable as visualized. ABDOMEN and PELVIS: Intraperitoneal space: Unremarkable. No free air. No significant fluid collection. Bones/joints: Degenerative change lumbar spine. No acute fracture. No dislocation. Soft tissues: Small fat-containing umbilical hernia. Vasculature: Atherosclerotic calcification of the abdominal aorta. No abdominal aortic aneurysm. Lymph nodes: Unremarkable. No enlarged lymph nodes. IMPRESSION: 1. Nonobstructing right renal calculus. 2. There is mild wall thickening with fat attenuation of the ascending and transverse colon. This could be seen with chronic inflammation. 3. Hepatic steatosis.
[2019-02-04] MEDS ORDERED: LIDOCAINE 1% INJ 10MG/ML (20 ML MDV) SQ STA (00:54)
[2019-02-04 01:48] VITALS: BP 115/73; PULSE 78; RESP 16
== END 2019-02-04 01:48 | disposition home or self-care (01) ==
LOC: EC 20:43
DX: L03.311 Cellulitis of abdominal wall (principal); J45.909 Unspecified asthma, uncomplicated; E11.9 Type 2 diabetes mellitus without complications; I10 Essential (primary) hypertension; Z88.0 Allergy status to penicillin; Z88.1 Allergy status to other antibiotic agents; Z88.2 Allergy status to sulfonamides; Z88.6 Allergy status to analgesic agent; Z88.8 Allergy status to other drugs, medicaments and biological substances; Z91.018 Allergy to other foods; Z79.1 Long term (current) use of non-steroidal anti-inflammatories (NSAID); Z79.84 Long term (current) use of oral hypoglycemic drugs; Z79.899 Other long term (current) drug therapy; Z86.14 Personal history of Methicillin resistant Staphylococcus aureus infection; Z87.39 Personal history of other diseases of the musculoskeletal system and connective tissue
CPT/HCPCS: 36415; 74177; 80053; 81003; 81025; 83605; 85025; 87040; 96361; 96365; 99284

== ENCOUNTER → 2023-01-20 | Outpatient (CLI) | payer BC ==
--- NOTE | 2023-01-21 08:58 | XR ---
EXAMINATION TYPE: XR KUB DATE OF EXAM: 01/20/2023 Comparison: 05/19/2017 Clinical History: 52-year-old female N20.0 N201 Findings: Nonobstructive bowel gas pattern. No significant sober. Multiple small pelvic phleboliths. Notice def inite suspicious calcification seen in the mid abdomen. Impression: Unable to clearly identify a suspicious renal calculus on either side by radiograph.
== END | disposition home or self-care (01) ==
LOC: RADXRMAIN 16:29
PROVIDERS: ATTEND Urology
DX: N20.0 Calculus of kidney (principal); N20.1 Calculus of ureter; I87.8 Other specified disorders of veins
CPT/HCPCS: 74018

== ENCOUNTER → 2023-01-30 | Outpatient (CLI) | payer BC ==
--- NOTE | 2023-02-02 08:05 | CT ---
EXAMINATION TYPE: CT abdomen pelvis wo con DATE OF EXAM: 01/30/2023 COMPARISON: 02/04/2019 HISTORY: Bilateral Flank pain. Hx of kidney stones. CT DLP: 1867.9 mGycm Automated exposure control for dose reduction was used. TECHNIQUE: Helical acquisition of images was performed from the lung bases through the pelvis. FINDINGS: Lung bases are clear. The gallbladder is normal without wall thickening, distention, gallstones or pe richolecystic fluid. No organomegaly involving the liver, pancreas, spleen or adrenal glands. The previously described 6 to 7 mm right renal calcification in the lower pole is again seen. There i s been interval development 2 additional calcifications one measuring 7.4 mm in the mid kidney and an other wallace-like calcification in the mid kidney as well. There are no left renal calcifications and there is no hydronephrosis bilaterally. Caliber of the the abdominal aorta is normal. Bowel loops are normal in caliber and no evidence of obstruction. No inflammatory changes identified within the mesentery. No free intraperitoneal air or fluid. No pelvic mass, fluid, abscess or adenopathy. The osseous structures and soft tissues unremarkable. IMPRESSION: 1. 3 nonobstructing right renal calcifications as described above. 2 are new when compared to the jenny or study. 2. No left renal calcifications. 3. No other significant abnormality seen.
== END | disposition home or self-care (01) ==
LOC: RADCTMAIN 15:08
PROVIDERS: ATTEND Urology
DX: N20.0 Calculus of kidney (principal)
CPT/HCPCS: 74176